=== PATIENT | male | born 1985 | race Caucasian/White ===

== ENCOUNTER → 2024-08-05 | Outpatient (CLI) | payer OTHER | LOC: LAB SHORT 15:08 → PLD 15:08 → LAB 15:08 | DX: D11.0 Benign neoplasm of parotid gland (principal); D49.0 Neoplasm of unspecified behavior of digestive system | CPT/HCPCS: 88173 ==

== ENCOUNTER 2024-10-20 09:40 | Day surgery (SDC) | payer OTHER ==
[~2024-10-20] VITALS: Ht 188 cm; Wt 106.0 kg
[~2024-10-20 09:40] MED LIST: Dexamethasone Sod Phos 10 MG/ML 1ML VIAL ONE; EPINEPhrine HCl 1 MG / ML 30ML Vial ONE; EPINEPhrine HCl 1 MG/ML 1ML Amp ONE; FentaNYL Citrate 50 MCG/ML 2 ML Injection ONE; Lactated Ringer's 1,000 ML IV ONE; Lactated Ringer's 1,000 ML ONE; Lidocaine 1%-Epineph 1:200000 30 ML SDV ONE; NS 0 ML IV ONE; Ondansetron HCl 2 MG / ML 2ML Vial ONE; Rocuronium Bromide 10 MG/ML 5ML Injection IV ONE; Sugammadex Sodium 200 MG/2ML SDV (100 MG/ML) ONE; propofoL 20 ML IV ONE
[2024-10-20] MEDS ORDERED: FAMO20 (10:04)
[2024-10-20] MEDS ORDERED: TRAM50 PO (10:04)
[2024-10-20] MEDS ORDERED: Lactated Ringer's 1,000 ML IV ONE ×2 (10:35→13:50)
[2024-10-20] MEDS ORDERED: Midazolam HCl 1MG / ML 2ML Vial ONE (11:29)
[2024-10-20] MEDS ORDERED: Artificial Tear Opth Oint 3.5 GM ONE (12:23)
[2024-10-20] MEDS ORDERED: NS 50 ML BAG XX ONE (12:30)
[2024-10-20] MEDS ORDERED: Normal Saline 10 ML DISP.Syringe XX ONE (12:30)
[2024-10-20] MEDS ORDERED: HYDROmorphone HCl/Pf 1MG SYR ONE (12:38)
[2024-10-20] MEDS ORDERED: Dexmedetomidine HCL 200 MCG / 2 ML ONE (12:39)
[2024-10-20] MEDS ORDERED: Ketamine HCl 100 MG / ML 5ML Vial ONE (14:11)
--- NOTE | 2024-10-20 14:31 | NUR ---
10/20/24 1431 Josephine Ma 10FR DRAIN LEDA DRAIN INSERTED BY GURJIT.
--- NOTE | 2024-10-20 15:31 | NUR ---
10/20/24 1531 SCOTT MOY PT RESTING/TALKING INTERMITTENTLY. LEDA DRAIN WITH SANGUINOUS DRAINAGE, SUTURED BEHIND LEFT EAR. TWO INCISION SITES TO LEFT EAR WELL APPROXIMATED, C, D.
[2024-10-20] MEDS ORDERED: OxyCODONE HCL 5 MG TAB ONE (15:44)
== END 2024-10-20 16:30 | disposition home or self-care (01) ==
LOC: ORSCSDS 09:40
PROVIDERS: Otolaryngology
PROC: 0CT90ZZ Resection of Left Parotid Gland, Open Approach (ICD-10-PCS; principal; 2024-10-20 11:00)
DX: D11.0 Benign neoplasm of parotid gland (principal); K21.9 Gastro-esophageal reflux disease without esophagitis
CPT/HCPCS: 88307; A9270; J0171; J1100; J1171; J2250; J2405; J2704; J3010; J7040; J7120

== ENCOUNTER → 2025-06-17 | Outpatient (CLI) | payer OTHER ==
[~2025-06-17] MED LIST changes: -Dexamethasone Sod Phos 10 MG/ML 1ML VIAL ONE; -EPINEPhrine HCl 1 MG / ML 30ML Vial ONE; -EPINEPhrine HCl 1 MG/ML 1ML Amp ONE; +FAMO20; -FentaNYL Citrate 50 MCG/ML 2 ML Injection ONE; -Lactated Ringer's 1,000 ML IV ONE; -Lactated Ringer's 1,000 ML ONE; -Lidocaine 1%-Epineph 1:200000 30 ML SDV ONE; -NS 0 ML IV ONE; -Ondansetron HCl 2 MG / ML 2ML Vial ONE; -Rocuronium Bromide 10 MG/ML 5ML Injection IV ONE; -Sugammadex Sodium 200 MG/2ML SDV (100 MG/ML) ONE; +TRAM50 PO; -propofoL 20 ML IV ONE
[2025-06-22 06:35] LABS: AMPHETAMINE,URN,QUANT 433 ng/mL; MDA,URN,QUANT <200 ng/mL; MDEA,URN,QUANT <200 ng/mL; MDMA,URN,QUANT <200 ng/mL; METHAMPHETAMINE,URN,QUANT 1436 ng/mL; PHENTERMINE,URN,QUANT <200 ng/mL
== END ==
LOC: LAB 19:17 → LAB SHORT 19:17
PROVIDERS: Family Medicine
DX: Z79.899 Other long term (current) drug therapy (principal)
CPT/HCPCS: G0480